=== PATIENT | female | born 1990 | race Caucasian/White ===

== ENCOUNTER 2018-06-11 00:28 | Emergency (ER) | payer BC, SELFPAY ==
--- NOTE | 2018-06-11 09:15 | RAD ---
EXAM: RIGHT HAND THREE VIEWS: History: Right hand pain following injury after slip and fall. FINDINGS: There is a displaced oblique fracture of the fourth metacarpal shaft with some foreshortening and sandrine y mild volar angulation. IMPRESSION: Displaced foreshortened 4th metacarpal fracture. POS: [facility]
== END 2018-06-11 02:19 | disposition home or self-care (01) ==
LOC: ERS 00:28
DX: S62.304A Unspecified fracture of fourth metacarpal bone, right hand, initial encounter for closed fracture (principal); W20.8XXA Other cause of strike by thrown, projected or falling object, initial encounter
CPT/HCPCS: 29125

== ENCOUNTER 2018-06-17 10:54 | Day surgery (SDC) | payer OTHER ==
[2018-06-16 14:00] VITALS: BMI 41.5
[2018-06-17] MEDS ORDERED: Ondansetron PF 4 MG/2 ML Vial ONE (13:13)
[2018-06-17] MEDS ORDERED: PROPOFOL 200 MG/20 ML VIAL ONE (13:13)
[2018-06-17] MEDS ORDERED: Dexamethasone 20 MG/5 ML VIAL ONE (13:13)
[2018-06-17] MEDS ORDERED: Ketorolac Tromethamine 30 MG/ML VIAL ONE (13:13)
[2018-06-17] MEDS ORDERED: Lidocaine 1% (PF) 30 ML VIAL ONE (13:21)
[2018-06-17] MEDS ORDERED: Bupivacaine 0.25% HCL 30 ML VIAL ONE (13:21)
[2018-06-17] MEDS ORDERED: Lidocaine 1% w/Epinephrine 1:100K 20 ML VIAL ONE (13:59)
[2018-06-17] MEDS ORDERED: Fentanyl 100 MCG/2 ML VIAL ONE ×4 (14:07→16:14)
--- NOTE | 2018-06-17 16:22 | OP ---
DATE OF PROCEDURE: 06/17/2018 PREOPERATIVE DIAGNOSIS: Right hand fourth metacarpal shaft fracture, oblique and two part and extra-articular and closed. POSTOPERATIVE DIAGNOSIS: Right hand fourth metacarpal shaft fracture, oblique and two part and extra-articular and closed. PROCEDURE PERFORMED: Open reduction and internal fixation using lag screw fixation for treatment of right fourth metacarpal oblique fracture, which is two part, closed, and displaced and extra-articular. [employer] INSTRUCTOR: Please see operative record. ANESTHESIA: General and local. TOURNIQUET TIME: 29 minutes. ESTIMATED BLOOD LOSS: Less than 10 mL. FINDINGS: Two-part, extra-articular, oblique fracture of the right fourth metacarpal with shortening and displacement and mild rotation, and it was easily reducible and held with solid fixation using two 1.5 mm lag screws, and tenodesis of the wrist did not show any rotational or angular deformities appreciated after fixation and reduction. IMPLANTS: 1.5 mm Synthes lag screws x2. CONDITION: Stable. INDICATIONS: The patient is a 27-year-old right dominant female, who works for [employer] and suffered an injury about a week ago when she attempted lifting a heavy box of chicken when it fell and bent her ring and small fingers awkwardly. She was seen at [facility] ER and x-rays were taken revealing a right fourth metacarpal fracture. She was then seen in my clinic yesterday, almost a week out from her injury with x-rays showing shortening of the fourth metacarpal shaft and displacement with apex dorsal displacement involving her right fourth metacarpal shaft fracture, appeared to be extra-articular, two part, and oblique. We discussed surgical and nonsurgical treatment options. The patient wished to undergo surgical treatment. I discussed all risks and goals associated with surgery. The goal of surgery is to improve upon the alignment of the fractured right fourth metacarpal and optimize posttraumatic function of the right hand. The risks associated surgery include but are not limited to possible nerve injury, blood vessel injury, tendon injury, hardware failure, hardware irritation, need for further surgery, malunion, nonunion, chronic pain, etc. She voiced understanding and agreed to proceed with an open reduction and internal fixation for treatment of right fourth metacarpal fracture. I was able to see the patient while she was awaiting surgery in the holding. Her older sister was present. I again explained the purpose of today's surgery and all risks and goals were again outlined. They voiced understanding and agreed to proceed. DESCRIPTION OF PROCEDURE: The patient was pre-dosed with IV antibiotics for preoperative prophylaxis. She was then brought to the operative room and placed supinely on the operating room table. Timeout was performed. A right upper extremity tourniquet was applied. General anesthesia was induced by the Anesthesia Team. The right upper extremity was then prepped and draped under sterile aseptic conditions. A second time-out was performed. Right upper extremity was exsanguinated using an Esmarch wrap and the tourniquet was inflated to 250 mmHg. A longitudinal incisional was made between the interval of the fourth and fifth metacarpals after local anesthetic using a combination of 1% lidocaine with epinephrine 1:100,000 parts and 0.25% bupivacaine was infiltrated into the area of predicted skin incision over the ulnar dorsal aspect of the hand. A 15 blade scalpel was then used make longitudinal incision in between the interval of the fourth and fifth metacarpals. Skin flaps were bluntly elevated, care was taken throughout the entirety of the case to protect and avoid any injury to the underlying sensory nerves and tendons. Dissection carried out down to the extensor tendons. The EDC tendon to the ring finger was identified and then retracted radially. This was done using a self retaining retractor. I used a fresh 15 blade scalpel then to make a longitudinal incision into the periosteum overlying the fourth metacarpal shaft. Periosteal flaps were sharply elevated using a 15 blade scalpel. The fracture was encountered. It appeared to be shortened and displaced. I was able to use a suction device and a rongeur to clear out any hematoma in interposed interosseous muscle. I was able to easily reduce the fragments after this was done and hold provisional fixation with the penetrating towel clamp. Fluoroscopic imaging confirmed appropriate alignment. I also tenodesed the wrist, which also confirmed that there were no rotational or angular deformities, therefore a 1.5 mm lag screw was advanced, using lag screw technique, the far cortex was drilled using 1.1 mm drill and the near cortex was drilled using 1.5 mm drill and then countersink was then used. The near cortex was countersunk. Depth gauge was used to measure appropriate screw length and a 9 mm x 1.5 mm screw was advanced with good compression. The fluoro images were taken and confirmed acceptable alignment of the hardware and the fracture. This was done in multiple planes of view. The penetrating towel clamp was then removed and a second 1.5 mm lag screw was advanced in similar fashion. Completion films were taken. The very stable fixation was created. I tenodesed the wrist. There were no rotational or angular deformities appreciated, therefore the wound was irrigated. The periosteal flaps were repaired using 4-0 Vicryl simple interrupted suture, and the tourniquet was deflated. All fingers resumed a normal pink color with good refill. Skin incision was primarily repaired using 4-0 nylon interrupted horizontal mattress sutures. Xeroform was applied over the wounds. Some additional local anesthetic was then infiltrated in the skin to help with postoperative pain prior to application of Xeroform and then a bulky dressing was applied along with an ulnar gutter splint, which included the middle, ring, and small fingers of the right hand. She was extubated and transported back to the recovery area in stable condition and tolerated the procedure well. I would like the patient to see Hand Therapy within 3 to 4 days postop for fitting of custom-molded ulnar gutter splint, which should include the middle, ring, and small fingers of the right hand and be forearm based. She will begin some gentle active range of motion exercises as well and not do any passive range of motion exercises until further noticed. She has been instructed preoperatively and will be instructed again postoperatively to remain completely nonweightbearing and avoid pushing or pulling activities regarding use of her right hand. She was discharged home on [place] 5/325 one to two tablets p.o. q.6 hours and 30 pills were dispensed. Job ID: [id number]
[2018-06-17] MEDS ORDERED: HYDROcodone/Acetaminophen 5/325 mg Tablet ONE (16:54)
[2018-06-17] MEDS ORDERED: Morphine 2 MG/ML SYRINGE ONE (18:04)
--- NOTE | 2018-06-18 18:13 | RAD ---
INTRAOPERATIVE IMAGING OF RIGHT FINGERS 06/18/18 COMPARISON: None. HISTORY: Fourth metacarpal fracture status post ORIF. FINDINGS: Previously noted obliquely oriented spiral fracture of right fourth metacarpal shaft is treated with placement of two metallic screws. There is normal anatomic alignment at the fracture site following f ixation. IMPRESSION: ORIF of the fourth metacarpal. POS: [facility]
== END 2018-06-17 16:45 | disposition home or self-care (01) ==
LOC: SDC 10:54
PROVIDERS: ATTEND Surgery Surgery of the Hand
PROC: 0PSP04Z Reposition Right Metacarpal with Internal Fixation Device, Open Approach (ICD-10-PCS; principal; 2018-06-17)
DX: S62.324A Displaced fracture of shaft of fourth metacarpal bone, right hand, initial encounter for closed fracture (principal); X50.0XXA Overexertion from strenuous movement or load, initial encounter
CPT/HCPCS: 76000; C1713; J1100; J1885; J2001; J2270; J2405; J2704; J3010; S0020